=== PATIENT | female | born 1940 | race Caucasian/White ===

== ENCOUNTER → 2023-01-11 10:24 | Outpatient (CLI) | payer MEDICARE, OTHER, SELFPAY ==
--- NOTE | 2023-01-11 10:28 | DI.MRI.S_ITS ---
PROCEDURE: MR LUMBAR SPINE WO CON INDICATIONS: Low back pain, unspecified TECHNIQUE: Noncontrast sagittal T1 spin echo and T2 fast echo, sagittal STIR, and T2 fast spin echo through the lumbar spine. In cases with scoliosis, additional coronal T2 fast spin echo may be performed. COMPARISON: None. FINDINGS: Image quality: Excellent. Alignment and Curvature: There is normal bony alignment. Bone Marrow: Marrow is of normal overall signal. No acute vertebral body compression fractures. Spinal Cord: Conus medullaris terminates at the L1 level. Visualized cord demonstrates normal signal and size. Paraspinous Soft Tissues: No paravertebral masses. T11-12: Diffuse disc bulge and facet hypertrophy causes severe bilateral foraminal stenosis. The ligamentum flavum are hypertrophic. Moderate central canal stenosis. T12-L1: Mild diffuse disc bulge causes mild bilateral foraminal stenosis. The ligamentum flavum are hypertrophic. Mild central canal stenosis. L1-L2: Diffuse disc bulge and facet hypertrophy causes moderate bilateral foraminal stenosis. The ligamentum flavum are hypertrophic. Mild central canal stenosis. L2-L3: Disc space narrowing and endplate degenerative changes with diffuse disc bulge, disc osteophytes, and facet hypertrophy on the left causes moderate right and severe left foraminal stenosis. The ligamentum flavum are hypertrophic. Mild central canal stenosis. L3-L4: Disc space narrowing and endplate degenerative changes with diffuse disc bulge, disc osteophytes, and facet hypertrophy cause severe bilateral foraminal stenosis. The ligamentum flavum are hypertrophic. Severe central canal stenosis. L4-L5: Diffuse disc bulge and facet hypertrophy causes mild to moderate bilateral foraminal stenosis. The central canal is patent. L5-S1: Diffuse disc bulge causes moderate right and mild left foraminal stenosis. The central canal is patent. IMPRESSION: 1. Multilevel lumbar spondylosis causing foraminal stenosis as detailed above. 2. Multilevel central canal stenosis, severe at L3-4. Dictated by: Thaddeus Farrell M.D. on 01/11/2023 at 12:13 Approved by: Thaddeus Farrell M.D. on 01/11/2023 at 12:19
== END ==
PROVIDERS: Referring Provider Physical Medicine & Rehabilitation; Visit Provider Physical Medicine & Rehabilitation
DX: M47.816 Spondylosis without myelopathy or radiculopathy, lumbar region (principal); M48.061 Spinal stenosis, lumbar region without neurogenic claudication; M54.50 Low back pain, unspecified
CPT/HCPCS: 72148